=== PATIENT | male | born 1975 | race Caucasian/White ===

== ENCOUNTER 2023-08-25 09:54 | Inpatient (IN) | payer BC ==
[~2023-08-25] VITALS: Ht 167.6 cm; Wt 105.5 kg
--- NOTE | 2023-08-25 12:00 | NUR ---
PATIENT ARRIVED FROM AT 1145AM. ADMISSION, PATIENT ASSESSMENT, AND MED REC COMPLETE.PATIENT A&OX4. VSS. PATIENT ORIANTED TO ROOM. PATIENT AMBULATED TO SCALE NEAR NURSES STATION W/ SBA AND THEN BACK TO ROOM AND RESTROOM, PATIEN TOLERATED WELL. PATIENT REPORTS NO PAIN AT THIS TIME AND HAS NO REQUEST. PATIENT IS CURRENTLY WORKING WITH PHYSICAL THERAPY.
[2023-08-25] MEDS ORDERED: ULTRAM 50MG TAB50 MG PO (12:44)
[2023-08-25] MEDS ORDERED: ROBAXIN 75750 MG/TAB PO (12:44)
[2023-08-25] MEDS ORDERED: NORVASC 10MG10 MG PO (12:45)
[2023-08-25] MEDS ORDERED: Polyethylene Glycol 3350 17 GM PDS PO PRN (12:45)
[2023-08-25] MEDS ORDERED: Sennosides/Docusate 8.6-50 MG TAB PO PRN (12:45)
[2023-08-25] MEDS ORDERED: MOBIC15 MG PO (12:45)
[2023-08-25] MEDS ORDERED: Naloxone 0.4 MG/ML VIAL IV PRN (12:45)
[2023-08-25] MEDS ORDERED: Docusate Sodium 100 MG CAP PO PRN (12:45)
[2023-08-25] MEDS ORDERED: HCTZ 25MG TAB25 MG PO (12:45)
[2023-08-25] MEDS ORDERED: Acetaminophen 325 MG TAB PO PRN (12:45)
[2023-08-25] MEDS ORDERED: COZAAR100 MG PO (12:46)
[2023-08-25] MEDS ORDERED: MULTIPLE VITAMI1 CAP PO (12:46)
[2023-08-25] MEDS ORDERED: traMADol 50 MG TAB PO PRN (13:00)
[2023-08-25] MEDS ORDERED: Methocarbamol 750 MG TAB PO SCH (14:00)
[2023-08-25] MEDS ORDERED: Heparin 5,000 UNITS/ML 1 ML VIAL SQ SCH (16:00)
[2023-08-25 17:00] VITALS: BP_SYST 146
[2023-08-25 17:14] VITALS: BP 146/85; PULSE 94; TEMP 98.1
--- NOTE | 2023-08-25 19:59 | NUR ---
NURSING SHIFT ASSESSMENT COMPLETED. THE PATIENT IS ALERT AND ORIENTED LYING IN BED WATCHING TV. THE PATIENT RATED HIS BACK PAIN 2/10 AND DENIED THE NEED FOR AN INTERVENTION. THE PATIENT DENIED OTHER NEEDS OR CONCERNS. THE PLAN OF CARE AND EVENING MEDICATIONS SCHEDULE REVIEWED. QUESTIONS ANSWERED. CALL LIGHT WITHIN REACH. BED ALARM ON. PERSONAL BELONGINGS WITHIN REACH. WILL MONITOR.
[2023-08-25 20:08] VITALS: BP_SYST 146
[2023-08-26 05:21] VITALS: BP 117/75; PULSE 78; TEMP 98.2
--- NOTE | 2023-08-26 05:50 | NUR ---
THE PATIENT RESTED WELL THIS NIGHT. PAIN CONTROLLED WITH ULTRAM. NO SPECIFIC NEEDS OVERNIGHT.
[2023-08-26 06:44] LABS: BASO # 0.1 K/mm3 (0.0-0.2); BASO % 0.6 % (0.0-2.0); EOS # 0.3 K/mm3 (0.0-0.7); EOS % 2.5 % (0.0-4.0); GRAN # 9.1 K/mm3 (1.4-6.5); GRAN % 69.4 % (42.2-75.2); HEMOGLOBIN 11.7 g/dl (13.5-18.0); LYMPH # 2.3 K/mm3 (1.2-3.4); LYMPH % 17.7 % (20.0-51.0); MEAN CELL VOLUME 88 fl (80.0-100.0); MEAN CORPUSCULAR HEMOGLOBIN 30 pg (27-31); MEAN CORPUSCULAR HGB CONC 34 g/dl (33.0-37.0); MEAN PLATELET VOLUME 10.6 fl (7.4-10.4); MONO # 1.1 K/mm3 (0.1-0.6); MONO % 8.7 % (1.7-9.3); PLATELET COUNT 316 K/mm3 (130-400); RED BLOOD COUNT 3.89 M/mm3 (4.20-5.60); REDCELL DISTRIBUTION WIDTH-CV 13.1 % (11.5-14.5)
[2023-08-26 06:46] LABS: HEMATOCRIT 34.2 % (42.0-52.0)
[2023-08-26 07:10] LABS: CALCIUM 10.4 mg/dL (8.4-10.2); CREATININE, serum 1.01 mg/dL (0.72-1.25); POTASSIUM 3.5 mEq/L (3.5-4.5)
[2023-08-26] MEDS ORDERED: hydroCHLOROthiazide 25 MG TAB PO SCH (09:00)
[2023-08-26] MEDS ORDERED: Losartan 50 MG TAB PO SCH (09:00)
[2023-08-26] MEDS ORDERED: amLODIPine 10 MG TAB PO SCH (09:00)
[2023-08-26] MEDS ORDERED: Multivitamin TAB PO SCH (09:00)
--- NOTE | 2023-08-26 09:48 | NUR ---
SHIFT ASSESSMENT COMPLETE. VSS. PATIENT UP TO RECLINER WATCHING TV AND AWAITING THERAPY TO START. ALL MORNING MEDS GIVEN PER ORDERS. FALL PRECAUTIONS IN PLACE AND CALL LIGHT IN REACH.
--- NOTE | 2023-08-26 15:19 | NUR ---
SW attended interdisciplinary team meeting earlier this morning. Progress discussed and discharge needs identified to include DME and OP therapy. Discharge date to be determined. SW met with patient to complete initial assessment for discharge planning. Patient verified that he lives in [place] with his Ashley who is also his DPOA. They have their 32 year old special needs daughter that lives with them as well. Patient sees Dr. Siat Florence as his PCP and uses [facility]. Patient is active and independent and is employed with a [employer] company. He has cane, transporter wheelchair and walker. He also has wheelchair ramp, walk in shower and grab bars in home. Patient asks to be referred to [facility] OP therapy in [place] for PT. Referral faxed. Discharge plan: Home with OP therapy
--- NOTE | 2023-08-26 15:34 | NUR ---
SW called [facility] in [place] and spoke with Jessica ([phone]) to schedule OP PT. Patient scheduled for 09/04/2023 at 1300 to arrive at 1245. Discharge plan: Home with OP therapy
[2023-08-26 18:02] VITALS: BP 121/74; PULSE 86; TEMP 98.3
--- NOTE | 2023-08-26 19:00 | NUR ---
Received change of shift report from day shift nurse. Patient resting in bed, exit alarm on, call light within patient's reach. Patient requesting stool softener with HS meds. No other needs reported.
[2023-08-27 05:50] VITALS: BP 123/77; PULSE 78; TEMP 98.5
--- NOTE | 2023-08-27 07:33 | NUR ---
Change of shift report given to day shift nurseTelma.
--- NOTE | 2023-08-27 09:46 | NUR ---
SHIFT ASSESSMENT COMPLETE. VSS. PATIENT UP TO RECLINER WATCHING TV AWAITING THERAPY TO START. PATIENT REPORTS PAIN 4/10 PAIN MED GIVEN PER ORDERS. ALL MORNING MEDS GIVEN PER ORDERS. PATIENT HAS NO OTHER REQUEST OR CONCERNS THIS AM. CHAIR ALARM ON AND CALL LIGHT IN REACH.
[2023-08-27 17:53] VITALS: BP 124/85; PULSE 93; TEMP 99
--- NOTE | 2023-08-27 19:42 | NUR ---
RECEIVED CHANGE OF SHIFT REPORT FROM DAY SHIFT NURSE. PATIENT RESTING IN BED, EXIT ALARM ON, CALL LIGHT WITHIN PATIENT'S REACH. OBSERVED PERFORMING LEG EXERCISES IN BED WITH NO REPORTED DISCOMFORT.
--- NOTE | 2023-08-27 20:00 | NUR ---
Patient denies chest pain/shortness of breathe/nausea at this time. Up to bathroom with steady gait, no complaints of back pain at this time. Patient expressing happiness that he is going home tomorrow. Exit alarm on while resting in bed with call light within patient's reach.
--- NOTE | 2023-08-28 03:14 | NUR ---
Patient resting with eyes closed, observed even/nonlabored breathing with bed exit alarm on, call light within patient's reach.
[2023-08-28 05:45] VITALS: BP 132/83; PULSE 73; TEMP 98.1
--- NOTE | 2023-08-28 07:23 | NUR ---
Change of shift report given to day shift nurseTelma.
--- NOTE | 2023-08-28 09:00 | NUR ---
SHIFT ASSESSMENT COMPLETE. VSS. PATIENT UP THIS AM WALKING AROUND ROOM AND PREPARING FOR DISCHARGE TODAY. ALL MORNING MEDS GIVEN PER ORDERS. PATIENT STATES PAIN 4/10 PAIN MEDS GIVEN PER ORDERS. PATIENT HAS NO OTHER REQUEST AT THIS TIME. CALL LIGHT IN REACH.
[2023-08-28] MEDS ORDERED: ROBAXIN 75750 MG/TAB PO (10:19)
[2023-08-28] MEDS ORDERED: ULTRAM 50MG TAB50 MG PO (10:20)
--- NOTE | 2023-08-28 10:45 | NUR ---
Initial visit; Patient a very nice man from [place] who sang praises to our hospital and staff and said his experience here was a good one. He is leaving today feeling well and very blessed it seems.
--- NOTE | 2023-08-28 12:02 | NUR ---
PATIENT WORKED WITH THERAPY THIS AM AND HAS RECEIVED DISCHARGE PAPERS TO GO HOME. THIS NURSE WILL ADMINISTER DISCHARGE INSTRUCTION.
--- NOTE | 2023-08-28 13:03 | NUR ---
straightedge worker faxed discharge orders to [facility] OP PT in [place]. JOSE notes pt has an appt already scheduled from previous notes. JOSE attempted to contact pt's room phone and no answer. Discharge Plan: home with OP PT today
--- NOTE | 2023-08-28 14:31 | NUR ---
Admission QIM scores were reviewed by the team. Code of 6 chosen for eating was determined by team discussion to be the most usual performance before interventions for this patient during the assessment period. Code of 4 chosen for toileting hygiene was determined by team discussion to be the most usual performance for this patient during the discharge assessment period. Code of 4 chosen for shower/bathe self was determined by team discussion to be the most usual performance before interventions for this patient during the assessment period. Code of 5 chosen for upper body dressing was determined by team discussion to be the most usual performance before interventions for this patient during the assessment period. Code of 4 chosen for lower body dressing was determined by team discussion to be the most usual performance before interventions for this patient during the assessment period. Code of 5 chosen for putting on/taking off footwear was determined by team discussion to be the most usual performance before interventions for this patient during the assessment period. Code of 4 chosen for sit to stand was determined by team discussion to be the most usual performance for this patient during the discharge assessment period.--Sara Bradford, PD
--- NOTE | 2023-08-28 15:15 | NUR ---
Discharge QIM scores were reviewed by the team. Code of 6 chosen for walking 10 feet was determined by team discussion to be the most usual performance for this patient during the discharge assessment period. Code of 6 chosen for walking 50 feet w/ 2 turns was determined by team discussion to be the most usual performance before interventions for this patient during the discharge assessment period.--Sara Bradford, PD
== END 2023-08-28 12:45 | disposition home or self-care (01) | DRG 556 ==
PROVIDERS: Physician Assistant; ADMIT Physical Medicine & Rehabilitation Sports Medicine
DX: R29.898 Other symptoms and signs involving the musculoskeletal system (principal); K59.2 Neurogenic bowel, not elsewhere classified; G99.2 Myelopathy in diseases classified elsewhere; R20.2 Paresthesia of skin; D72.828 Other elevated white blood cell count; D64.9 Anemia, unspecified; R05.9 Cough, unspecified; N31.9 Neuromuscular dysfunction of bladder, unspecified; I10 Essential (primary) hypertension; R53.81 Other malaise; R26.89 Other abnormalities of gait and mobility; Z74.09 Other reduced mobility; Z79.899 Other long term (current) drug therapy; Z79.891 Long term (current) use of opiate analgesic
CPT/HCPCS: J1644